=== PATIENT | male | born 1965 | race Caucasian/White ===

== ENCOUNTER 2017-05-05 11:18 | Emergency (ER) | payer OTHER, SELFPAY ==
[2017-05-05] MEDS ORDERED: Morphine Sulfate 2 MG/ML SYRINGE ONE (11:38)
[2017-05-05] MEDS ORDERED: Ketorolac Tromethamine 30 MG/ML VIAL ONE (11:38)
[2017-05-05] MEDS ORDERED: Bacitracin Zinc 1 Packet ONE (11:49)
== END 2017-05-05 12:48 | disposition home or self-care (01) ==
LOC: BURERS 11:18
DX: T23.252A Burn of second degree of left palm, initial encounter (principal); T23.262A Burn of second degree of back of left hand, initial encounter; T21.10XA Burn of first degree of trunk, unspecified site, initial encounter; T22.111A Burn of first degree of right forearm, initial encounter; T20.10XA Burn of first degree of head, face, and neck, unspecified site, initial encounter; T31.0 Burns involving less than 10% of body surface; I10 Essential (primary) hypertension; F32.9 Major depressive disorder, single episode, unspecified; X12.XXXA Contact with other hot fluids, initial encounter
CPT/HCPCS: 16020; 96361; 96374; 96375; J1885; J2270